=== PATIENT | male | born 1995 | race Caucasian/White ===

== ENCOUNTER → 2024-08-18 | Outpatient (CLI) | payer OTHER ==
--- NOTE | 2024-08-18 14:08 | XR ---
EXAMINATION TYPE: XR foot complete RT DATE OF EXAM: 08/18/2024 1:25 PM COMPARISON: None CLINICAL INDICATION: Male, 29 years old with history of [id number] RT FOOT PAIN; [facility] TECHNIQUE: XR foot complete RT examined in the AP, oblique, and lateral projections. FINDINGS: No evidence of any acute osseous pathology. IMPRESSION: No evidence of acute fracture. [facility], , 08/18/2024 2:06 PM
== END | disposition home or self-care (01) ==
LOC: RADXRYALE 13:12
PROVIDERS: ATTEND Internal Medicine
DX: M79.671 Pain in right foot (principal)